=== PATIENT | female | born 1930 | race Caucasian/White ===

== ENCOUNTER 2017-09-01 13:56 | Inpatient (IN) ==
[2017-09-01] MEDS ORDERED: Naloxone 0.4 MG/ML INJ IVP PRN (16:55)
--- NOTE | 2017-09-01 17:10 | Internal Med History&Physical ---
<Tony Costa - Last Filed: 09/01/17 17:35> Date of Encounter: 09/01/17 Time of Encounter: 17:08 Assessment and Plan (1) Subtrochanteric fracture of femur Current visit: Yes Status: Acute Secondary to mechanical fall. CT scan reveals mildly comminuted displaced overriding and angulated subtrochanteric fracture of the left femur with involvement of the lesser trochanter -Orthopedic surgery to see -Pain control with Dilaudid -Bedrest -EKG -Echocardiogram prior to surgery Pre op risk assessment -2 to advanced age, dementia and history of the patient has a diminished functional capacity -Per my assessment she is a moderate risk patient without any specific contraindications for a moderate risk surgery Echocardiogram and EKG ordered as stated above prior to surgery DVT prophylaxis per recommendations of orthopedic surgeon She is not on any blood thinners Qualifiers: Encounter type: initial encounter Fracture type: closed Fracture alignment: displaced Laterality: left Qualified Code(s): S72.22XA - Displaced subtrochanteric fracture of left femur, initial encounter for closed fracture (2) Dementia Current visit: Yes Status: Acute Continue Namenda and Aricept Qualifiers: Dementia type: unspecified type Dementia behavioral disturbance: without behavioral disturbance Qualified Code(s): F03.90 - Unspecified dementia without behavioral disturbance (3) Valvular disease Current visit: Yes Status: Acute Patient reports bovine valve however it is unclear if this is mitral or aortic -Echocardiogram for further assessment and evaluation (4) DVT prophylaxis Current visit: Yes Status: Acute Heprin 5000 units SC this evening, then hold morning dose Internal Medicine - H&P: HPI Chief complaint: Left femoral fracture Admitted From: Home Plans for Post Hospital Care: Home History of present illness: Ms. Fernandes is a 86 year old female with a past medical history of dementia, GERD , valve replacement, pacer presents today after a fall while eating at a restaurant. Patient has dementia and is unable to fully dissipate in the examination. Her family is at bedside and reports reports the patient fell on her left hip, with her falling on top of her while trying to help. She has been complaining of significant pain in the left hip since the fall, and has a reduced range of motion. She denies any chest pain, dizziness, loss of consciousness, palpitations, tachycardia, shortness of breath, nausea, vomiting , diarrhea. Past Med Surg Social Fam HX - Past Medical History Medical history: hypertension - Past Surgical History Surgical History: heart valve replacement, hip replacement, pacemaker - Social History Smoking Status: Light tobacco smoker Smokeless Tobacco Status: No Alcohol use: none Drug use: none - Additional Family History Additional family history: Noncontributory Internal Medicine - H&P: Meds Docusate Sodium [Stool Softener] 100 mg PO BID 09/01/17 [History] Donepezil [Aricept] 5 mg PO DAILY 09/01/17 [History] Gabapentin [Neurontin] 600 mg PO Q6HR 09/01/17 [History] Memantine [Namenda] 5 mg PO DAILY 09/01/17 [History] Methocarbamol 09/01/17 [History] Omeprazole 10 mg PO DAILY 09/01/17 [History] Tramadol HCl 50 mg PO Q6HR PRN 09/01/17 [History] 3 Allergy/AdvReac Type Severity Reaction Status Date / Time No Known Allergies Allergy Unverified 02/23/16 09:06 All Systems PM: A 10-system review of systems was performed and is negative for pertinent findings except as documented above in the HPI. - Constitutional Constitutional: no chills, no fever(s), no night sweats - EENT Eyes: no change in vision, no discharge, no pain, no photophobia Ears: no ear discharge, no ear pain, no tinnitus Nose, mouth and throat: no dysphagia, no nasal discharge, no neck pain, no sore throat - Cardiovascular Cardiovascular ROS IM: no chest pain, no diaphoresis, no dyspnea, no lightheadedness, no palpitations, no syncope - Respiratory Respiratory: no cough, no dyspnea, no wheezing, no excessive phlegm production - Gastrointestinal Gastrointestinal: no abdominal pain, no diarrhea, no hematemesis, no hematochezia, no melena, no nausea, no vomiting - Genitourinary Genitourinary: no change in urinary stream, no dysuria, no flank pain, no hematuria - Musculoskeletal Musculoskeletal ROS IM: as per HPI - Integumentary Integumentary IM: no rash, no unusual bruising - Neurological Neurological ROS: no confusion, no convulsions, no focal weakness, no numbness, no tingling, no tremor(s) - Constitutional Vitals: Temp Pulse Resp BP Pulse Ox 99.4 F 93 16 175/80 94 09/01/17 15:46 09/01/17 15:46 09/01/17 15:46 09/01/17 15:46 09/01/17 15:46 General appearance: Present: cooperative, A&O X 1, no acute distress, answers questions appropriately Exam: Baseline dementia - Head Head exam: Present: atraumatic, normocephalic - Eye Eye exam: Present: PERRL, conjuntiva pink, sclera anicteric Pupils: Present: PERRL - Neck Neck exam general surgery: Present: supple, trachea midline. Absent: lymphadenopathy - Respiratory Respiratory exam: Present: CTAB. Absent: accessory muscle use, rales, rhonchi, wheezes - Cardiovascular Cardiovascular exam: Present: RRR, +S1, +S2. Absent: diastolic murmur, gallop, rubs, systolic murmur - GI/Abdominal GI/Abdominal exam: Present: normal bowel sounds, soft, no peritoneal signs. Absent: distended, tenderness - Extremities Exam Extremities exam: Present: normal capillary refill, tenderness, warm, radial pulses palpable and symmetrical. Absent: calf tenderness, cyanotic, pedal edema - Expanded Lower Extremities Exam Lower Leg exam: Present: swelling, tenderness (Tenderness over greater trochanter extending distally). Absent: deformity, ecchymosis, erythema, full ROM, normal inspection - Neurological Exam Neurological exam: Present: alert. Absent: oriented X3, pronater drift, facial droop, speech deficit - Skin Skin exam: Present: dry, intact Internal Med - H&P Results - Diagnostic Studies Other Images Status: image reviewed by me Additional comments: Comminuted, displaced, and overriding Subtrochanteric fracture of the left femur with involvement of the lesser trochanter <Arnie Wilson - Last Filed: 09/01/17 18:21> Date of Encounter: 09/01/17 Internal Medicine - H&P: HPI History of present illness: Ms. Fernandes is a 86 year old female All Systems PM: A 10-system review of systems was performed and is negative for pertinent findings except as documented above in the HPI. - Constitutional Vitals: Temp Pulse Resp BP Pulse Ox 99.4 F 93 16 175/80 94 09/01/17 15:46 09/01/17 15:46 09/01/17 15:46 09/01/17 15:46 09/01/17 15:46 - Attending Attestation seen and examined independently at bedside with family 86 F with COPD, s/p AVR (bovine), ICD placement last year, CKD, current smoker, HTN, Dementia She had a mechanical fall with a subtrochanteric femoral fracture and is admitted to medicine for ortho She is moderate risk for low risk surgery, however, she is not active at baseline and cardiac history is extensive, she has however had a hip replacement done before without complications I recommend we obtain an ECHO at least prior to surgery, however, if surgery is deemed emergent or urgent, procedure should not be delayed for the echocardiogram. Her old EKGs showed RBBB. We will obtain an EKG at this time Avoid nephrotoxins Type and screen High risk of delirium due to age and multiple co-morbidities, avoid BZDPs. Rest of details is as in MARIELA Costa' documentation
[2017-09-01] MEDS: *HR* Heparin 5,000 UNIT/ML VIAL SQ SCH (17:36)
[2017-09-01] MEDS: *HR* HYDROmorphone (PF) 1 MG/ML SYRINGE IVP PRN (17:36)
[2017-09-01] MEDS: Gabapentin 300 MG CAPSULE PO SCH ×2 (17:47→23:34)
--- NOTE | 2017-09-01 19:25 | Orthopedic Consult Note ---
Date of Encounter: 09/01/17 Time of Encounter: 19:22 Assessment and Plan (1) Subtrochanteric fracture of femur Current Visit: Yes Status: Acute I did discuss the diagnosis in detail and the patient has a left displaced subtrochanteric femur fracture. My recommendation is for reduction and stabilization of the left femur in order to provide pain control and to help facilitate nursing care. The risks discussed included but were not limited to stiffness, bleeding, infection, blood clots, damage to neurovascular structures , tendons, ligaments, and bone. Also discussed was the risk of continued symptoms and possible need for further procedures. I did discuss the anesthesia risks including stroke, heart attack, and . I did discuss the reasonable, foreseeable postoperative course. The patient did wish to proceed. Anticipate surgery tomorrow after medical clearance. Qualifiers: Encounter type: initial encounter Fracture type: closed Fracture alignment: displaced Laterality: left Qualified Code(s): S72.22XA - Displaced subtrochanteric fracture of left femur, initial encounter for closed fracture History of Present Illness HPI: Ms. Fernandes is a 86 year old female who was transferred from [facility] after being found to have a left subtrochanteric femur fracture. She said she had a non-syncopal fall yesterday and hoped the pain would go away on its own. Due to persistence of pain she presented to the emergency department. She complains of sharp isolated pain to the left hip and groin region worse with movement and better with rest. There is no associated numbness or tingling or other signs or symptoms. She denies any headaches or loss of consciousness or neck pain or chest pain or abdominal pain. She denies bilateral upper extremity pain and right lower extremity pain. Past Med Surg Social Fam HX - Past Medical History Medical history: hypertension - Past Surgical History Surgical History: heart valve replacement, hip replacement, pacemaker - Social History Smoking Status: Light tobacco smoker Smokeless Tobacco Status: No Alcohol use: none Drug use: none Medications and Allergies Docusate Sodium [Stool Softener] 100 mg PO BID 09/01/17 [History] Donepezil [Aricept] 5 mg PO DAILY 09/01/17 [History] Gabapentin [Neurontin] 600 mg PO Q6HR 09/01/17 [History] Memantine [Namenda] 5 mg PO DAILY 09/01/17 [History] Methocarbamol 09/01/17 [History] Omeprazole 10 mg PO DAILY 09/01/17 [History] Tramadol HCl 50 mg PO Q6HR PRN 09/01/17 [History] 3 Allergy/AdvReac Type Severity Reaction Status Date / Time No Known Allergies Allergy Unverified 02/23/16 09:06 All Systems Reviewed: A 10-system review of systems was performed and is negative for pertinent findings except as documented above in the HPI. Physical Exam - Constitutional Vitals: Temp Pulse Resp BP Pulse Ox 99.4 F 93 16 175/80 94 09/01/17 15:46 09/01/17 15:46 09/01/17 15:46 09/01/17 15:46 09/01/17 15:46 Constitutional -Vitals reviewed -The patient is well developed and well nourished. -Mood is pleasant. -The patient is well groomed. Psychiatric -The patient is fully alert and oriented x 3. Respiratory: -Respiratory effort normal Abdomen: -Soft abdomen -Non tender -Non distended: Left upper extremity: -No deformities. The overlying skin is intact. No obvious signs of acute trauma. -No tenderness to palpation throughout. -No significant pain with passive motion of the shoulder, elbow, wrist, and fingers within the limits of the bed. -Able to make an "OK" sign, cross the index and long fingers, and extend the thumb. -Sensation grossly intact to light touch throughout the median, radial, and ulnar distributions. -Radial pulse is present; Fingers have good capillary refill. Right upper extremity: -No deformities. The overlying skin is intact. No obvious signs of acute trauma. -No tenderness to palpation throughout. -No significant pain with passive motion of the shoulder, elbow, wrist, and fingers within the limits of the bed. -Able to make an "OK" sign, cross the index and long fingers, and extend the thumb. -Sensation grossly intact to light touch throughout the median, radial, and ulnar distributions. -Radial pulse is present; Fingers have good capillary refill. Left lower extremity: -The extremity is shortened and externally rotated. The overlying skin is intact. -There is tenderness in the groin region as well as the proximal lateral thigh. -I did not range the hip due to the known fracture. -No tenderness along the distal thigh, leg, ankle, foot, or toes. -Able to dorsiflex and plantarflex the ankle and toes. -Sensation is grossly intact to light touch throughout the sural, saphenous, superficial peroneal, and deep peroneal distributions. -Toes have good capillary refill. Right lower extremity: -No deformities. The overlying skin is intact. No obvious signs of acute trauma. -No tenderness to palpation throughout. -No pain with passive motion of the hip, knee, ankle, and toes within the limits of the bed. -No pain with axial loading of the thigh. -Able to dorsiflex and plantarflex the ankle and toes. -Sensation is grossly intact to light touch throughout the sural, saphenous, superficial peroneal, and deep peroneal distributions. -Toes have good capillary refill. Diagnostic Imaging: I did personally review and interpret the x-ray of the left femur as well as the CT scan of the left hip from the transferring facility which shows a displaced subtrochanteric left femur fracture. Results - Labs Labs: All other labs normal. Consult Discharge Plan - Plan Referrals: Vika Mustafa MD [Primary Care Provider] -
[2017-09-01] MEDS: traMADol 50 MG TABLET PO PRN (20:23)
[2017-09-02] MEDS: Gabapentin 300 MG CAPSULE PO SCH ×4 (05:21→23:34)
[2017-09-02] MEDS: *HR* Heparin 5,000 UNIT/ML VIAL SQ SCH (05:22)
[2017-09-02 06:23] LABS: Basophils % 0.4 %; Eosinophils # 0.1 K/mcL (0.0-0.6); Eosinophils % 1.6 %; Hematocrit 28.7 % (35.3-44.9); Hemoglobin 8.6 g/dL (11.5-15.4); Immature Granulocytes % 0.2 % (0-4); Lymphocytes # 1.4 K/mcL (0.6-4.6); Lymphocytes % 16.5 %; Mean Corpuscular Volume 96.6 fL (83.0-100.0); Mean Platelet Volume 10.5 fL (9.4-12.4); Monocytes % 11.7 %; Neutrophils # 5.8 K/mcL (1.6-8.9); Platelet Count 175 K/mcL (140-400); Red Blood Count 2.97 M/mcL (3.82-4.97); Segmented Neutrophils % 69.6 %
[2017-09-02 06:37] LABS: Calcium 8.5 mg/dL (8.6-10.3); Potassium 4.6 mEq/L (3.5-5.1)
[2017-09-02] MEDS: (Omeprazole 10 MG) PO SCH (08:09)
[2017-09-02] MEDS: *HR* HYDROmorphone (PF) 1 MG/ML SYRINGE IVP PRN ×2 (08:11→22:19)
--- NOTE | 2017-09-02 11:20 | Internal Med Progress Note ---
Date of Encounter: 09/02/17 Time of Encounter: 11:08 - Assessment and plan (1) Subtrochanteric fracture of femur Current Visit: Yes Status: Acute Assessment and plan: with intractable Left hi pain cont symptomatic and supportive care Ortho on board 2 D Echo - P EKG -showed Paced rhythm She is at moderate / Intermediate risk for surgery like Hip repair will talk to surgeon on Heparin SQ for DVT prophylaxis Qualifiers: Encounter type: initial encounter Fracture type: closed Fracture alignment: displaced Laterality: left Qualified Code(s): S72.22XA - Displaced subtrochanteric fracture of left femur, initial encounter for closed fracture (2) Hypertension Current Visit: Yes Status: Acute Assessment and plan: stable BP resumed home meds Coreg + Norvasc Qualifiers: Qualified Code(s): I10 - Essential (primary) hypertension (3) GERD (gastroesophageal reflux disease) Current Visit: Yes Status: Acute Assessment and plan: On PPI Qualifiers: Qualified Code(s): K21.9 - Gastro-esophageal reflux disease without esophagitis (4) Dementia Current Visit: Yes Status: Acute Qualifiers: Dementia type: unspecified type Dementia behavioral disturbance: without behavioral disturbance Qualified Code(s): F03.90 - Unspecified dementia without behavioral disturbance (5) Valvular disease Current Visit: Yes Status: Acute Assessment and plan: will f/u on 2 D Echo (6) DVT prophylaxis Current Visit: Yes Status: Acute Assessment and plan: on SQ heparin - Subjective Interval history: Ms. Fernandes is a 86 year old female with a past medical history of dementia, GERD , heart valve replacement, pacer presents today after a fall while eating at a restaurant. As per family the patient fell on her left hip, with her falling on top of her while trying to help. She has been complaining of significant pain in the left hip since the fall, and has a reduced range of motion. Pt is resting comfortably, denied any CP / SOB. Her pain is also tolerable with medications. - Constitutional Vitals: Temp Pulse Resp BP Pulse Ox 97.8 F 81 16 126/64 99 09/02/17 06:45 09/02/17 06:45 09/02/17 06:45 09/02/17 06:45 09/02/17 06:45 General appearance: Present: cooperative, A&O X 1, no acute distress, answers questions appropriately - Head Head exam: Present: atraumatic, normal inspection - Neck Neck exam general surgery: Present: supple - Respiratory Respiratory exam: Present: decreased breath sounds. Absent: rales, respiratory distress, rhonchi, wheezes - Cardiovascular Cardiovascular exam: Present: RRR, +S1, +S2. Absent: tachycardia - GI/Abdominal GI/Abdominal exam: Present: normal bowel sounds, soft. Absent: rebound, rigid, tenderness - Extremities Exam Extremities exam: Present: tenderness (Left hip pain). Absent: calf tenderness , pedal edema - Back Exam Back exam: Absent: CVA tenderness (L), CVA tenderness (R) - Neurological Exam Neurological exam: Present: alert, oriented X3 - Psychiatric Psychiatric exam: Present: normal affect, normal mood Internal Medicine: Result - Labs CBC & Chem 7: 09/02/17 05:56 09/02/17 05:56 Labs: Short CBC 09/02/17 Range/Units 05:56 WBC 8.3 (4.3-11.1) K/mcL Hgb 8.6 L (11.5-15.4) g/dL Hct 28.7 L (35.3-44.9) % Plt Count 175 (140-400) K/mcL Neutrophils # 5.8 (1.6-8.9) K/mcL BMP 09/02/17 05:56 Sodium 138 Potassium 4.6 Chloride 105 Carbon Dioxide 29 BUN 34 H Creatinine 1.82 H Glucose 117 H Calcium 8.5 L - Impressions Impressions Femur X-Ray 09/01/17 18:13 IMPRESSION: Oblique, moderately displaced and comminuted fracture of the proximal left femur, with involvement of the lesser trochanter. D/ / 09/01/2017 19:28:47 Roger Marquez MD / daren Interpreting Provider: Roger Marquez MD Consult Discharge Plan - Plan Referrals: Vika Mustafa MD [Primary Care Provider] -
--- NOTE | 2017-09-02 11:54 | Orthopedics Progress Note ---
Date of Encounter: 09/02/17 Time of Encounter: 11:53 - Assessment and Plan (1) Subtrochanteric fracture of femur Current Visit: Yes Status: Acute I did discuss the diagnosis in detail and the patient has a left displaced subtrochanteric femur fracture. My recommendation is for reduction and stabilization of the left femur in order to provide pain control and to help facilitate nursing care. The risks discussed included but were not limited to stiffness, bleeding, infection, blood clots, damage to neurovascular structures , tendons, ligaments, and bone. Also discussed was the risk of continued symptoms and possible need for further procedures. I did discuss the anesthesia risks including stroke, heart attack, and . I did discuss the reasonable, foreseeable postoperative course. The patient did wish to proceed. Anticipate surgery tomorrow after medical clearance. Qualifiers: Encounter type: initial encounter Fracture type: closed Fracture alignment: displaced Laterality: left Qualified Code(s): S72.22XA - Displaced subtrochanteric fracture of left femur, initial encounter for closed fracture Subjective Interval history: S: Resting comfortably in bed. Expected pain to the left hip. O: Afebrile and vital signs are stable Tenderness and pain in the left thigh and groin I did not motion the left hip due to the known injury She can flex and plantar flex the left ankle and toes The foot is sensate and well-perfused. A: Left hip subtrochanteric fracture P: At this point my recommendation is for proceeding with fixation of the left hip to stabilize left hip and provide pain control. Awaiting follow-up from echo this morning We will proceed with surgery once medically cleared. Objective Vital signs: Vital Signs Temp Pulse Resp BP Pulse Ox 09/02/17 11:05 97.6 F 78 16 129/58 96 09/02/17 06:45 97.8 F 81 16 126/64 99 09/02/17 04:42 97.6 F 76 15 128/54 98 09/01/17 23:38 97.9 F 87 16 118/60 96 09/01/17 19:21 98.8 F 98 17 178/78 97 09/01/17 15:46 99.4 F 93 16 175/80 94 Intake and Output 09/01/17 09/02/17 09/02/17 23:59 07:59 15:59 Intake Total 120 / 120 Output Total 975 / 975 Balance 120 / 120 -975 / -975 Intake: Oral 120 / 120 Output: Catheter / 975 - Labs CBC & BMP: 09/02/17 05:56 09/02/17 05:56 Labs: Abnormal lab results RBC 2.97 M/mcL (3.82-4.97) L 09/02/17 05:56 Hgb 8.6 g/dL (11.5-15.4) L 09/02/17 05:56 Hct 28.7 % (35.3-44.9) L 09/02/17 05:56 MCHC 30.0 g/dL (31.6-35.5) L 09/02/17 05:56 BUN 34 mg/dL (8-23) H 09/02/17 05:56 Creatinine 1.82 mg/dL (0.60-1.20) H 09/02/17 05:56 Est GFR ( Amer) 32 (> 60) L 09/02/17 05:56 Est GFR (Non-Af Amer) 26 (> 60) L 09/02/17 05:56 Glucose 117 mg/dL (70-105) H 09/02/17 05:56 Calcium 8.5 mg/dL (8.6-10.3) L 09/02/17 05:56 Consult Discharge Plan - Plan Referrals: Vika Mustafa MD [Primary Care Provider] -
--- NOTE | 2017-09-02 14:16 | Anesthesia Evaluation PreOp ---
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) Other Medical History: GERD Anesthesia History: No Prior Anesthetic Complications, Past Anesthesia Alcohol Use: none Drug use: none Medications and Allergies Docusate Sodium [Stool Softener] 100 mg PO BID 09/01/17 [History] Donepezil [Aricept] 5 mg PO DAILY 09/01/17 [History] Gabapentin [Neurontin] 600 mg PO Q6HR 09/01/17 [History] Methocarbamol 09/01/17 [History] Omeprazole [PriLOSEC] 10 mg PO DAILY 09/01/17 [History] Tramadol HCl [Ultram] 50 mg PO Q6H PRN 09/01/17 [History] Carvedilol [Carvedilol] 12.5 mg PO BID 09/02/17 [History] Furosemide [Lasix] 40 mg PO DAILY PRN 09/02/17 [History] Gabapentin [Neurontin] 600 mg PO Q6H PRN 09/02/17 [History] Memantine HCl [Memantine HCl] 10 mg PO DAILY 09/02/17 [History] amLODIPine [Norvasc] 5 mg PO DAILY 09/02/17 [History] 3 Allergy/AdvReac Type Severity Reaction Status Date / Time No Known Allergies Allergy Verified 09/02/17 10:34 - Meds/Allergy Pre-op Review Medications Reviewed: Yes Allergies Reviewed: Yes Beta Blockers on Current Med List: Yes Anesthesia Results - Labs 09/02/17 05:56 09/02/17 05:56 - Imaging EKG: report reviewed (09/01/2017 ELECTRONIC VENTRICULAR PACEMAKER 11/10/2014 SINUS RHYTHM RIGHT BUNDLE BRANCH BLOCK) Additional studies: 09/02/2017 Echo Impressions: Paced rhythm. Mild concentric left ventricular hypertrophy. Moderate left ventricular diastolic dysfunction. Atypical septal motion consistent with paced rhythm. Bioprosthetic aortic valve replacement with normal function. Mild mitral regurgitation. Mild-moderate tricuspid regurgitation. A device lead was visualized in the right atrium and right ventricle. LVEF 65%., unable to fully evaluate subsegmental wall motion abnormalites due to limited positioning. Anesthesia Exam Vital Signs/O2 Sat, Most Current Temp Pulse Resp BP Pulse Ox 97.6 F 78 16 129/58 96 09/02/17 11:05 09/02/17 11:05 09/02/17 11:05 09/02/17 11:05 09/02/17 11:05 Height: 5'5''/1.65 m Weight: 141 lbs/64.4 kg NPO (# of Hours): 8 Pain Scale: 0 (at rest) Pain Scale Used: Numeric (1 - 10) - HEENT Pupil (Motor): EOMI Mallampati: II Teeth: Normal Oral Opening: Greater than 3 - AUGER SUPERVISOR LOC: Oriented AUGER SUPERVISOR Motor: Normal RUE, Normal LUE, Normal RLE, Normal LLE, Normal Face AUGER SUPERVISOR Sensory: Normal: RUE, LUE, RLE, LLE, Face - Cardiac Rhythm: Regular - Pulmonary Breath Sounds: bilateral Clear Respiratory Effort: Symmetrical Anesthesia Assess/Plan ASA Score: 3 Modified Mariajose Scale for Level of Consciousness: Cooperative, oriented, and tranquil Anesthetic Plan: General Monitoring Plan: Standard Monitors Recovery Plan: PACU
[2017-09-02] MEDS ORDERED: Albuterol 2.5 MG/3 ML NEBULIZER ONE (14:39)
[2017-09-02] MEDS ORDERED: *HR* HYDROmorphone (PF) 1 MG/ML SYRINGE IVP PRN (14:47)
[2017-09-02] MEDS ORDERED: *HR* Succinylcholine 200 MG/10 ML VIAL IVP ONE (14:50)
[2017-09-02] MEDS ORDERED: *HR* FentaNYL (PF) 100 MCG/2 ML VIAL ONE (14:50)
[2017-09-02] MEDS ORDERED: Dexamethasone 4 MG/ML VIAL ONE (14:50)
[2017-09-02] MEDS ORDERED: *HR* Propofol 200 MG/20 ML VIAL IVP ONE (14:50)
[2017-09-02] MEDS ORDERED: Ondansetron 4 MG/2 ML VIAL ONE (14:50)
[2017-09-02] MEDS ORDERED: Lidocaine -MPF 2% 2 ML VIAL ONE (14:50)
[2017-09-02] MEDS ORDERED: *HR* Metoprolol 5 MG/5 ML VIAL IVP ONE (15:30)
[2017-09-02] MEDS: *HR* Morphine 2 MG/ML SYRINGE IVP PRN ×2 (17:30→17:40)
--- NOTE | 2017-09-02 18:03 | Anesthesia Evaluation Post Op ---
Date of Encounter: 09/02/17 Time of Encounter: 18:03 - Vital Signs Vital Signs: Vital Signs/O2 Sat, Most Current Temp Pulse Resp BP Pulse Ox 98.2 F 84 12 150/57 98 09/02/17 17:53 09/02/17 17:53 09/02/17 17:53 09/02/17 17:53 09/02/17 17:53 - Lungs Lungs: Clear Ascult./Percussion - Airway Airway: Non-obstructed - Cardiovascular Regular Rate - Mental Status Mental Status: Asleep with brisk response to light stimulation - Pain Pain Scale: 0 Pain Scale used: Numeric (1 - 10) - Nausea Vomiting Nausea Vomiting: Not Present - Hydration Hydration: NPO, Prakash catheter - Discharge PostOp Status: Transfer Patient to floor
--- NOTE | 2017-09-02 18:11 | Orthopedic Operative Note ---
Date of procedure: 09/02/17 Procedure: OPERATIVE REPORT DATE OF PROCEDURE: 09/02/2017 SURGEON: Felipe Kearney MD OIL RIG ROUGHNECK(S): There were no assistants PREOPERATIVE DIAGNOSIS: Left subtrochanteric femur fracture POSTOPERATIVE DIAGNOSIS: Left subtrochanteric femur fracture PROCEDURE: Open reduction and internal fixation of the left femur ANESTHESIA: General anesthesia PREOPERATIVE ANTIBIOTICS: 2 g of Ancef ESTIMATED BLOOD LOSS: 200 milliliters IMPLANTS: Marisel Gamma 3 nail; 380 mm by 11 mm with a 125 degree neck and 95 mm lag screw PREOPERATIVE NOTE AND INDICATIONS: This patient is an 86 female with a left subtrochanteric femur fracture. Recommendation was for reduction and fixation in order to reduce and stabilize the left femur to provide pain control and to help facilitate nursing care. The surgical plan was discussed with the patient. The risks, benefits, alternatives, and potential complications of this procedure were discussed with the patient including injury to veins, arteries, nerves, tendons, ligaments, and bone. Also discussed were the risks of infection, bleeding, pain, blood clots, the possible need for a blood transfusion, the possible need for further procedures, heart attack, stroke, and . Additional risks including malunion, nonunion, hardware failure, and the need to remove the hardware in the future. All of this was explained in simple terms, and the patient verbalized understanding and wished to proceed. Consent was given to proceed with surgery. PROCEDURE: The patient was seen in the preoperative holding area where the identify and the consent were confirmed. The left thigh was marked. Final questions were answered. The patient was brought back to the operating room. A huddle was performed with the patient and all vital surgical team members confirming patient identity, the correct procedure, and the correct operative site. General anesthesia was administered. She was placed supine on the traction table. The left lower extremity was placed in traction and the right lower extremity was flexed and abducted out of the way. Good x-rays could be obtained. The fracture remained significantly displaced and the decision was made to open. The left lower extremity was prepped and draped in the usual sterile fashion. A surgical time out was performed immediately preceding the incision with all personnel in the operating room to confirm patient identity, the correct operative site and extremity, correct radiographic studies, availability of appropriate surgical equipment, and agreement on the planned procedure. A longitudinal incision was made laterally on the thigh and dissection proceeded through the subcutaneous tissue down to the fascia karolina. This was incised longitudinally and the vastus lateralis was encountered. The fascia of the vastus lateralis was opened and using the Bovie dissection proceeded through the muscle down to the fracture fragments which were identified. Muscle was stripped off the fracture site in order to allow for reduction which was held with a clamp. A small incision was made proximally and dissection proceeded to the gluteal fascia which was opened. The guidewire was driven in the proximal femur which was opened with a curved awl. The ball-tipped guidewire was passed on the femur and the canal was reamed in half millimeter increments up to 13 mm. The definitive 11 mm nail was passed down the shaft of the femur and a guidewire driven into the femoral head. This was overdrilled and the definitive 95 mm lag screw was placed. Using a perfect [place] technique to distal [place] were placed after making small poke hole incisions along the distal lateral thigh. Final x-rays confirmed excellent reduction and good position of the hardware. The wounds were copiously irrigated and the vastus lateralis fascia was closed with 0 Vicryl stitches followed by the fascia karolina with 0 Vicryl stitches. The skin was closed with 0 Vicryl, 3-0 Vicryl, and payton. Sterile dressings were applied. The patient was taken off the traction table and placed on her hospital bed in good condition. The instrument, sponge, and needle counts were correct after wound closure. POST OPERATIVE PLAN: Weight Bearing: Weightbearing as tolerated to bilateral lower extremity. DVT Prophylaxis: Aspirin Activity: Activities as tolerated with the assistance of therapy Wound Care: Daily dressing changes on postoperative day 2 Pain Control: Per the hospitalist Antibiotics: 2 g of Ancef 2 doses Follow Up: 2 weeks Was there an virtual assistant present: No Estimated blood loss (cc): 200
[2017-09-02 18:28] LABS: Hematocrit 27.4 % (35.3-44.9); Hemoglobin 8.4 g/dL (11.5-15.4)
[2017-09-02] MEDS: 0.9 % Sodium Chloride 1,000 ML IVC SCH (19:48)
[2017-09-02] MEDS: CeFAZolin Premix DUPLEX 2,000 MG/50 ML BAG IVPB SCH (23:34)
[2017-09-03 02:59] LABS: Basophils % 0.1 %; Hematocrit 24.3 % (35.3-44.9); Hemoglobin 7.4 g/dL (11.5-15.4); Immature Granulocytes % 0.4 % (0-4); Mean Corpuscular HGB Conc 30.5 g/dL (31.6-35.5); Mean Corpuscular Hemoglobin 29.2 pg (28.0-33.3); Mean Platelet Volume 10.9 fL (9.4-12.4); Monocytes # 1.3 K/mcL (0.0-1.3); Monocytes % 9.3 %; Neutrophils # 11.9 K/mcL (1.6-8.9); Platelet Count 160 K/mcL (140-400); Red Blood Count 2.53 M/mcL (3.82-4.97); Segmented Neutrophils % 84.2 %
[2017-09-03 03:20] LABS: Calcium 7.9 mg/dL (8.6-10.3); Magnesium 1.9 mg/dL (1.6-2.6); Potassium 5.7 mEq/L (3.5-5.1)
[2017-09-03 03:25] LABS: Lymphocytes # 0.9 K/mcL (0.6-4.6)
[2017-09-03] MEDS: traMADol 50 MG TABLET PO PRN (05:57)
[2017-09-03] MEDS: Gabapentin 300 MG CAPSULE PO SCH ×4 (05:57→23:19)
[2017-09-03] MEDS: 0.9 % Sodium Chloride 1,000 ML IVC SCH (05:58)
[2017-09-03] MEDS ORDERED: 0.9 % Sodium Chloride 250 ML IVC SCH (07:30)
--- NOTE | 2017-09-03 07:50 | Orthopedics Progress Note ---
Date of Encounter: 09/03/17 Time of Encounter: 07:47 - Assessment and Plan (1) Subtrochanteric fracture of femur Current Visit: Yes Status: Acute Qualifiers: Encounter type: initial encounter Fracture type: closed Fracture alignment: displaced Laterality: left Qualified Code(s): S72.22XA - Displaced subtrochanteric fracture of left femur, initial encounter for closed fracture Subjective Interval history: S: Resting comfortably in bed. Expected pain to the left hip. O: Afebrile and vital signs are stable Tenderness and pain in the left thigh and groin I can gently passively range the left hip with mild to moderate pain as expected. She can dorsiflex and plantar flex the ankle and toes. A: Post internal fixation of the left femur P: At this point the patient can mobilize with therapy when able Prakash out Weightbearing as tolerated on the bilateral lower extremities Aspirin 325 mg by mouth twice a day We will transfuse 1 unit for acute blood loss anemia from surgery Objective Vital signs: Vital Signs Temp Pulse Resp BP Pulse Ox 09/03/17 06:23 99.8 F H 75 16 128/61 94 09/03/17 02:58 99.9 F H 93 16 121/60 100 09/02/17 23:08 99.8 F H 93 14 131/64 99 09/02/17 21:30 97.6 F 95 18 113/63 100 09/02/17 20:30 98.3 F 95 18 126/55 100 09/02/17 19:54 100 09/02/17 19:30 97.6 F 97 18 145/65 100 09/02/17 19:12 97.9 F 96 14 130/65 100 09/02/17 19:00 97.6 F 94 18 152/65 100 09/02/17 18:30 97.5 F L 89 12 118/63 98 09/02/17 18:13 98 F 90 12 141/70 99 09/02/17 18:03 88 12 152/56 100 09/02/17 17:53 98.2 F 84 12 150/57 98 09/02/17 17:43 81 14 152/58 100 09/02/17 17:33 82 16 153/101 100 09/02/17 17:23 97.4 F L 80 14 167/74 94 09/02/17 11:05 97.6 F 78 16 129/58 96 Intake and Output 09/02/17 09/02/17 09/03/17 15:59 23:59 07:59 Intake Total 120 / 120 1050 / 1050 Output Total 975 / 975 200 / 200 250 / 250 Balance -975 / -975 -80 / -80 800 / 800 Intake: IV Fluids 1050 / 1050 0.9 % Sodium Chloride 1,000 ML 1000 / 1000 @ 100 mls/hr IVC .Q10H GIULIANA Rx#: [id number] Ancef Premix DUPLEX 2,000 mg In 50 / 50 50 ml @ 100 mls/hr IVPB Q8HR GIULINAA Rx#:[id number] Oral 120 / 120 Output: Urine 0 / 0 Estimated Blood Loss 200 / 200 Catheter 975 / 975 0 / 0 250 / 250 - Labs CBC & BMP: 09/03/17 02:12 09/03/17 02:12 Labs: Abnormal lab results WBC 14.1 K/mcL (4.3-11.1) H D 09/03/17 02:12 RBC 2.53 M/mcL (3.82-4.97) L 09/03/17 02:12 Hgb 7.4 g/dL (11.5-15.4) L 09/03/17 02:12 Hct 24.3 % (35.3-44.9) L 09/03/17 02:12 MCHC 30.5 g/dL (31.6-35.5) L 09/03/17 02:12 Neutrophils # 11.9 K/mcL (1.6-8.9) H 09/03/17 02:12 Potassium 5.7 mEq/L (3.5-5.1) H 09/03/17 02:12 BUN 41 mg/dL (8-23) H 09/03/17 02:12 Creatinine 2.07 mg/dL (0.60-1.20) H 09/03/17 02:12 Est GFR ( Amer) 28 (> 60) L 09/03/17 02:12 Est GFR (Non-Af Amer) 23 (> 60) L 09/03/17 02:12 Glucose 164 mg/dL (70-105) H 09/03/17 02:12 Calcium 7.9 mg/dL (8.6-10.3) L 09/03/17 02:12 - VTE Documentation of Mechanical Device: Intermittent pneumatic compression device Consult Discharge Plan - Plan Referrals: Vika Mustafa MD [Primary Care Provider] -
[2017-09-03] MEDS: CeFAZolin Premix DUPLEX 2,000 MG/50 ML BAG IVPB SCH (08:04)
--- NOTE | 2017-09-03 08:51 | Internal Med Progress Note ---
Date of Encounter: 09/03/17 Time of Encounter: 08:20 - Assessment and plan (1) Subtrochanteric fracture of femur Current Visit: Yes Status: Acute Assessment and plan: with intractable Left hip pain s/p ORIF of Left Femur on 09/02/17 - POD #1 cont post op care as per ortho Hb dropped down to 7.4 Will transfuse 2 U PRBC cont symptomatic and supportive care Reviewed 2 D Echo - showed mild concentric LVH, Moderate LV diastolic dysfunction, Bioprosthetic AV replacement, Preserved LVEF 2 65% Started on Lovenox at 30mg for DVT prophylaxis Qualifiers: Encounter type: initial encounter Fracture type: closed Fracture alignment: displaced Laterality: left Qualified Code(s): S72.22XA - Displaced subtrochanteric fracture of left femur, initial encounter for closed fracture (2) Acute blood loss as cause of postoperative anemia Current Visit: Yes Status: Acute Assessment and plan: Her anemia -might be due to Post op blood loss + CKD-3 will transfuse 2 U PRBC cont close monitoring (3) Hypertension Current Visit: Yes Status: Acute Assessment and plan: stable BP resumed home meds Coreg + Norvasc Qualifiers: Qualified Code(s): I10 - Essential (primary) hypertension (4) GERD (gastroesophageal reflux disease) Current Visit: Yes Status: Acute Assessment and plan: On PPI Qualifiers: Qualified Code(s): K21.9 - Gastro-esophageal reflux disease without esophagitis (5) Dementia Current Visit: Yes Status: Acute Qualifiers: Dementia type: unspecified type Dementia behavioral disturbance: without behavioral disturbance Qualified Code(s): F03.90 - Unspecified dementia without behavioral disturbance (6) CKD (chronic kidney disease), stage III Current Visit: Yes Status: Acute Assessment and plan: slightly elevated Cr, and K+ mostly due to dehydration cont IV hydration for today (7) Valvular disease Current Visit: Yes Status: Acute Assessment and plan: Bioprotshetic AV valve no further work needed (8) Chronic diastolic (congestive) heart failure Current Visit: Yes Status: Acute Assessment and plan: echo showed moderate diastolic dysfunction, preserved LVEF not in exacerbation gentle hydration only resumed home meds (9) DVT prophylaxis Current Visit: Yes Status: Acute Assessment and plan: on SQ Lovenox - Subjective Interval history: Ms. Fernandes is a 86 year old female with a past medical history of dementia, GERD , heart valve replacement, pacer presents today after a fall while eating at a restaurant. As per family the patient fell on her left hip, with her falling on top of her while trying to help. She has been complaining of significant pain in the left hip since the fall, and has a reduced range of motion. Pt is resting comfortably, denied any CP / SOB. Her pain is also tolerable with medications. No events over night. - Constitutional Vitals: Temp Pulse Resp BP Pulse Ox 99.8 F H 75 16 128/61 94 09/03/17 06:23 09/03/17 06:23 09/03/17 06:23 09/03/17 06:23 09/03/17 06:23 General appearance: Present: cooperative, A&O X 2, no acute distress, answers questions appropriately - Head Head exam: Present: atraumatic, normal inspection - Neck Neck exam general surgery: Present: supple - Respiratory Respiratory exam: Present: decreased breath sounds. Absent: rales, respiratory distress, rhonchi, wheezes - Cardiovascular Cardiovascular exam: Present: +S1, +S2, systolic murmur. Absent: tachycardia - GI/Abdominal GI/Abdominal exam: Present: normal bowel sounds, soft. Absent: rebound, rigid, tenderness - Extremities Exam Extremities exam: Present: tenderness (Left hip region.. ). Absent: calf tenderness, pedal edema Additional comments: clean incision - Back Exam Back exam: Absent: CVA tenderness (L), CVA tenderness (R) - Psychiatric Psychiatric exam: Present: normal affect, normal mood Internal Medicine: Result - Labs CBC & Chem 7: 09/03/17 02:12 09/03/17 02:12 Labs: Short CBC 09/02/17 09/03/17 Range/Units 18:15 02:12 WBC 14.1 H D (4.3-11.1) K/mcL Hgb 8.4 L 7.4 L (11.5-15.4) g/dL Hct 27.4 L 24.3 L (35.3-44.9) % Plt Count 160 (140-400) K/mcL Neutrophils # 11.9 H (1.6-8.9) K/mcL BMP 09/03/17 02:12 Sodium 136 Potassium 5.7 H Chloride 105 Carbon Dioxide 24 BUN 41 H Creatinine 2.07 H Glucose 164 H Calcium 7.9 L - Impressions Impressions Fluoroscopy 09/02/17 00:00 IMPRESSION: Status post ORIF for proximal left femur fracture. D/ / 09/02/2017 17:53:38 Sen Carrington MD / cosmo Interpreting Provider: Sen Carrington MD Echocardiogram 09/02/17 08:23 Impressions: Paced rhythm. Mild concentric left ventricular hypertrophy. Moderate left ventricular diastolic dysfunction. Atypical septal motion consistent with paced rhythm. Bioprosthetic aortic valve replacement with normal function. Mild mitral regurgitation. Mild-moderate tricuspid regurgitation. A device lead was visualized in the right atrium and right ventricle. LVEF 65%., unable to fully evaluate subsegmental wall motion abnormalites due to limited positioning. Left Ventricular Wall Motion: Rest Echo Findings All wall segments showed normal motion. Findings: Study Quality * Technically sub-optimal due to poor echocardiographic windows, pt supine with hip fracture, unable to position, dementia, unable to cooperate ECG Findings * Paced rhythm. Left Ventricle * LVEF 65%. * Mild concentric left ventricular hypertrophy. * Moderate left ventricular diastolic dysfunction. * There is no LV thrombus. * Atypical septal motion consistent with paced rhythm. Right Ventricle * Normal right ventricular structure and function. Left Atrium * Normal left atrial size. Right Atrium * Normal right atrial size. Aortic Valve * Bioprosthetic aortic valve replacement with normal function. Mitral Valve * Normal mitral valve structure. * Mild mitral regurgitation. Tricuspid Valve * Normal tricuspid valve structure. * Mild-moderate tricuspid regurgitation. Pulmonic Valve * Pulmonic valve is not well visualized. Aorta * Normally sized aortic root. Pericardium * The pericardium appears normal. Device lead * A device lead was visualized in the right atrium and right ventricle. Pelvis X-Ray 09/02/17 17:13 IMPRESSION: Improved alignment of the proximal left femur fracture status post ORIF. The fracture extends along the left femoral shaft off of the inferior aspect of the radiograph. D/ / 09/02/2017 17:55:12 Abdirahman Veras MD / cosmo Interpreting Provider: Abdirahman Veras MD Femur X-Ray 09/02/17 17:14 IMPRESSION: Status post ORIF for a proximal left femur fracture. D/ / 09/02/2017 17:44:58 Sen Carrington MD / daren Interpreting Provider: Sen Carrington MD - VTE Documentation of Mechanical Device: Intermittent pneumatic compression device Consult Discharge Plan - Plan Referrals: Vika Mustafa MD [Primary Care Provider] -
[2017-09-03] MEDS: (Omeprazole 10 MG) PO SCH (09:07)
[2017-09-03] MEDS: *HR* OxyCODONE Immed Rel 5 MG TABLET PO PRN ×2 (11:31→15:35)
[2017-09-03] MEDS: Aspirin Enteric Coated 81 MG Tablet PO SCH (11:32)
[2017-09-03] MEDS ORDERED: 0.9 % Sodium Chloride 250 ML ONE ×2 (12:05→15:49)
[2017-09-03] MEDS ORDERED: Aspirin Enteric Coated 325 MG Tablet PO SCH (17:18)
[2017-09-03 21:17] LABS: Hematocrit 27.5 % (35.3-44.9); Hemoglobin 8.9 g/dL (11.5-15.4)
[2017-09-03 21:33] LABS: Calcium 7.5 mg/dL (8.6-10.3); Magnesium 1.8 mg/dL (1.6-2.6); Potassium 5.2 mEq/L (3.5-5.1)
[2017-09-03] MEDS ORDERED: Acetaminophen 325 MG TABLET PO PRN (23:34)
[2017-09-04] MEDS: Gabapentin 300 MG CAPSULE PO SCH ×4 (05:42→20:55)
[2017-09-04] MEDS ORDERED: *HR* Enoxaparin 30 MG/0.3 ML SYRINGE SQ SCH (06:00)
[2017-09-04 07:02] LABS: Basophils % 0.2 %; Eosinophils # 0.1 K/mcL (0.0-0.6); Eosinophils % 0.6 %; Hematocrit 24.4 % (35.3-44.9); Hemoglobin 7.8 g/dL (11.5-15.4); Immature Granulocytes % 0.5 % (0-4); Lymphocytes # 1.1 K/mcL (0.6-4.6); Lymphocytes % 13.7 %; Mean Corpuscular Hemoglobin 29.4 pg (28.0-33.3); Mean Corpuscular Volume 92.1 fL (83.0-100.0); Mean Platelet Volume 11.1 fL (9.4-12.4); Monocytes # 0.9 K/mcL (0.0-1.3); Monocytes % 11.4 %; Neutrophils # 6.1 K/mcL (1.6-8.9); Platelet Count 104 K/mcL (140-400); Red Blood Count 2.65 M/mcL (3.82-4.97); Red Cell Distribution Width 15.2 % (11.5-14.5); Segmented Neutrophils % 73.6 %
[2017-09-04 07:19] LABS: Calcium 7.5 mg/dL (8.6-10.3); Potassium 4.8 mEq/L (3.5-5.1)
[2017-09-04] MEDS ORDERED: Furosemide 20 MG/2 ML VIAL IVP ONE (08:06)
--- NOTE | 2017-09-04 08:11 | Internal Med Progress Note ---
Date of Encounter: 09/04/17 Time of Encounter: 08:09 - Assessment and plan (1) Subtrochanteric fracture of femur Current Visit: Yes Status: Acute Assessment and plan: with intractable Left hip pain s/p ORIF of Left Femur on 09/02/17 - POD # 2 cont post op care as per ortho Needed 2 units PRBCs yesterday. Her hemoglobin dropped again but no signs of bleeding. We will not transfuse today. We will check labs in the morning. Reviewed 2 D Echo - showed mild concentric LVH, Moderate LV diastolic dysfunction, Bioprosthetic AV replacement, Preserved LVEF 2 65% Aspirin 325 twice a day per Orthopedics for DVT prophylaxis. Qualifiers: Encounter type: initial encounter Fracture type: closed Fracture alignment: displaced Laterality: left Qualified Code(s): S72.22XA - Displaced subtrochanteric fracture of left femur, initial encounter for closed fracture (2) Acute diastolic heart failure Current Visit: Yes Status: Acute Assessment and plan: Patient has a history of diastolic heart failure. We will give 20 mg of IV Lasix as she seems to be exacerbation with crackles and hypoxia requiring 2 L of oxygen although she is on 2 L chronically 2. Continue with nebulizers. Wean down oxygen as tolerated. (3) CKD (chronic kidney disease), stage III Current Visit: Yes Status: Acute Assessment and plan: Creatinine is above baseline. It is at 2.21 today. It was 2.43 yesterday. We will give 20 mg of IV Lasix today. Check labs in the morning. Avoid other nephrotoxins. Stop IV fluids. She does have crackles. (4) Acute blood loss as cause of postoperative anemia Current Visit: Yes Status: Acute Assessment and plan: Status post 2 units PRBCs yesterday. Hemoglobin is 7.8 today. It did jump up to 8.4 yesterday after the transfusions. No signs of bleeding. I suspect this is blood loss anemia from the surgery. We will continue to monitor. The patient is hemodynamically stable. Labs in the morning. (5) Dementia Current Visit: Yes Status: Acute Assessment and plan: Continue supportive care Qualifiers: Dementia type: unspecified type Dementia behavioral disturbance: without behavioral disturbance Qualified Code(s): F03.90 - Unspecified dementia without behavioral disturbance (6) Valvular disease Current Visit: Yes Status: Acute Assessment and plan: Bioprotshetic AV valve no further work needed (7) Hypertension Current Visit: Yes Status: Acute Assessment and plan: stable BP resumed home meds Coreg + Norvasc Qualifiers: Qualified Code(s): I10 - Essential (primary) hypertension (8) DVT prophylaxis Current Visit: Yes Status: Acute Assessment and plan: Aspirin 325 mg twice a day - Subjective Interval history: Patient was seen and examined. Has been no acute events. She was admitted with a left femur fracture. She is status post ORIF on 09/02. Postoperatively she required 2 units of PRBCs. She is currently on 2 L of nasal cannula oxygen. She tells me she is usually on it on and off at home. She has worked with therapy. She says the pain is still significant. Her status complicated by acute kidney failure on chronic kidney disease. She has been afebrile. - Constitutional Vitals: Temp Pulse Resp BP Pulse Ox 98.6 F 85 20 144/61 100 09/04/17 06:45 09/04/17 06:45 09/04/17 06:45 09/04/17 06:45 09/04/17 06:45 General appearance: Present: cooperative, A&O X 2, no acute distress, answers questions appropriately Exam: GEN: NAD CVS: RRR. S1, S2, No m/r/g RESP: Crackles at the bases. ABD: Soft, NT, ND, +BS EXT: No edema. 2+ DP, No rashes NEURO: Nonfocal Internal Medicine: Result - Labs CBC & Chem 7: 09/04/17 05:57 09/04/17 05:57 Labs: Short CBC 09/03/17 09/04/17 Range/Units 21:08 05:57 WBC 8.3 (4.3-11.1) K/mcL Hgb 8.9 L D 7.8 L (11.5-15.4) g/dL Hct 27.5 L 24.4 L (35.3-44.9) % Plt Count 104 L (140-400) K/mcL Neutrophils # 6.1 (1.6-8.9) K/mcL BMP 09/03/17 09/04/17 21:08 05:57 Sodium 131 L 134 L Potassium 5.2 H 4.8 Chloride 104 106 Carbon Dioxide 22 L 23 BUN 48 H 47 H Creatinine 2.43 H 2.21 H Glucose 225 H 209 H Calcium 7.5 L 7.5 L - Impressions Impressions Chest X-Ray 09/04/17 23:35 IMPRESSION: Mild prominence of pulmonary vasculature. Correlation for pulmonary edema is recommended. D/ / Anisha Laws Cha, MD / Anisha Laws Cha, MD Interpreting Provider: Anisha Laws Cha, MD - VTE Documentation of Mechanical Device: Intermittent pneumatic compression device Consult Discharge Plan - Plan Referrals: Vika Mustafa MD [Primary Care Provider] -
--- NOTE | 2017-09-04 08:15 | Orthopedics Progress Note ---
Date of Encounter: 09/04/17 Time of Encounter: 08:13 - Assessment and Plan (1) Subtrochanteric fracture of femur Current Visit: Yes Status: Acute Qualifiers: Qualified Code(s): S72.22XA - Displaced subtrochanteric fracture of left femur, initial encounter for closed fracture Subjective Interval history: S: Resting comfortably in bed. Expected pain to the left hip. O: Afebrile and vital signs are stable; febrile last night Tenderness and pain in the left thigh and groin I can gently passively range the left hip with mild to moderate pain as expected. She can dorsiflex and plantar flex the ankle and toes. A: Post internal fixation of the left femur P: At this point the patient can mobilize with therapy when able Weightbearing as tolerated on the bilateral lower extremities Aspirin 325 mg by mouth twice a day Objective Vital signs: Vital Signs Temp Pulse Resp BP Pulse Ox 09/04/17 06:45 98.6 F 85 20 144/61 100 09/04/17 03:41 99.2 F 93 16 143/72 95 09/03/17 23:33 101.2 F H 101 15 163/53 94 09/03/17 21:00 98 09/03/17 20:11 99.1 F 101 15 143/60 98 09/03/17 19:00 98.7 F 98 16 151/61 98 09/03/17 16:19 100.2 F H 90 12 124/43 98 09/03/17 15:53 99.2 F 89 21 123/47 09/03/17 15:40 99.2 F 21 123/47 98 09/03/17 12:35 98 F 94 14 120/51 94 09/03/17 12:19 97.6 F 92 16 116/53 93 09/03/17 11:31 97.4 F L 96 16 126/61 96 Intake and Output 09/03/17 09/04/17 09/04/17 23:59 07:59 15:59 Intake Total 375 / 375 Output Total 800 / 800 Balance -425 / -425 Intake: IV Fluids 25 / 25 0.9 % Sodium Chloride 250 ML As 25 / 25 .ROUTE .STK-MED ONE Rx#: [id number] Oral 50 / 50 Blood Product 300 / 300 Rbcs Leuko Poor As-1 Unit 300 / 300 [id number] Output: Straight Cath 800 / 800 Other: # Voids 1 Weight 69.1 kg Patient Weight 09/04/17 23:59 Weight 69.1 kg - Labs CBC & BMP: 09/04/17 05:57 09/04/17 05:57 Labs: Abnormal lab results RBC 2.65 M/mcL (3.82-4.97) L 09/04/17 05:57 Hgb 7.8 g/dL (11.5-15.4) L 09/04/17 05:57 Hct 24.4 % (35.3-44.9) L 09/04/17 05:57 RDW 15.2 % (11.5-14.5) H 09/04/17 05:57 Plt Count 104 K/mcL (140-400) L 09/04/17 05:57 Sodium 134 mEq/L (136-145) L 09/04/17 05:57 BUN 47 mg/dL (8-23) H 09/04/17 05:57 Creatinine 2.21 mg/dL (0.60-1.20) H 09/04/17 05:57 Est GFR ( Amer) 26 (> 60) L 09/04/17 05:57 Est GFR (Non-Af Amer) 21 (> 60) L 09/04/17 05:57 Glucose 209 mg/dL (70-105) H 09/04/17 05:57 Calcium 7.5 mg/dL (8.6-10.3) L 09/04/17 05:57 - VTE Documentation of Mechanical Device: Intermittent pneumatic compression device Consult Discharge Plan - Plan Additional Instructions: JAIL DISCHARGE INSTRUCTIONS Dr. Kearney PROCEDURE PERFORMED Reduction and fixation of left hip. Incision care -Daily dressing changes to the left hip with dry gauze and either paper tape or medipore tape. -Avoid soaking wound in water (no hot tubs, bathtubs, swimming pools). -May shower after 2 weeks from surgery date. Carefully wash incision with soap and water. Gently pat it dry. Don't rub the incision, or apply creams or lotions. Sit on a shower stool when showering to keep from falling. Weight bearing status -Weightbearing as tolerated to the bilateral lower extremities. Medications -Pain medication per the discharging medical doctor -Enteric coated aspirin 325 mg by mouth twice per day for 28 days from the date of the surgery. Other -Knee high JAMMIE hose 23 hours per day -Consult physical and occupational therapy for mobilization. -Up to chair with assistance at least twice per day. -Follow up with your primary care physician to discuss testing for bone mineral density. Follow-up with Dr. Kearney at the office 2 weeks from the surgery date for a post operative evaluation. Call the office at [phone] to schedule appointment. Referrals: Vika Mustafa MD [Primary Care Provider] -
[2017-09-04] MEDS ORDERED: Ipratropium/Albuterol Neb 3 ML IH PRN (08:16)
[2017-09-04] MEDS: Aspirin Enteric Coated 81 MG Tablet PO SCH (09:07)
[2017-09-04] MEDS: (Omeprazole 10 MG) PO SCH (09:07)
[2017-09-04] MEDS: Aspirin 325 MG TABLET PO SCH ×2 (09:12→20:55)
[2017-09-04] MEDS: amLODIPine 5 MG TABLET PO SCH (09:13)
[2017-09-04] MEDS: traMADol 50 MG TABLET PO PRN ×2 (09:17→15:14)
--- NOTE | 2017-09-04 17:11 | Electrocardiograph Report ---
[address] [address] Test Date: 2017-09-01 Pat Name: Nancy Fernandes Department: 114 Room: [facility] Gender: F [employer] Supervisor: : [id number] Requested By: Tony Costa Order Number: [id number] Reading MD: Randy Villareal Measurements Intervals [place] Rate: 94 P: 76 CT: 184 QRS: -64 QRSD: 163 T: 100 QT: 395 QTc: 446 Interpretive Statements ELECTRONIC VENTRICULAR PACEMAKER ABNORMAL RHYTHM ECG Electronically Signed On 09-04-2017 17:10:06 EST by Randy Villareal
[2017-09-05 01:05] LABS: Bilirubin,Urine Negative (Negative); Blood,Urine Small (Negative); Clarity,Urine Cloudy (Clear); Color,Urine Yellow (Yellow); Glucose,Urine (UA) Normal (Normal); Ketones,Urine Negative (Negative); Leukocyte Esterase,Urine Negative (Negative); Nitrite,Urine Negative (Negative); Protein,Urine 30 mg/dL (Neg-Trace); Specific Gravity,Urine 1.012 (1.010-1.025); Urobilinogen,Urine Normal (Normal)
[2017-09-05 01:07] LABS: Hyaline Casts,Urine None Seen per lpf (None-Few); Squamous Epithelial Cell,Urine Many per lpf (None-Few); WBC,Urine 0-3 per hpf (0-3)
[2017-09-05 01:29] LABS: Bacteria,Urine Few per hpf (None-Few); RBC,Urine 0-3 per hpf (0-3); Yeast,Urine Few per hpf (None Seen)
[2017-09-05 05:33] LABS: Basophils % 0.3 %; Eosinophils # 0.1 K/mcL (0.0-0.6); Eosinophils % 1.7 %; Hematocrit 23.6 % (35.3-44.9); Hemoglobin 7.5 g/dL (11.5-15.4); Immature Granulocytes % 0.6 % (0-4); Lymphocytes % 14.3 %; Mean Corpuscular HGB Conc 31.8 g/dL (31.6-35.5); Mean Corpuscular Hemoglobin 29.6 pg (28.0-33.3); Mean Corpuscular Volume 93.3 fL (83.0-100.0); Mean Platelet Volume 11.2 fL (9.4-12.4); Monocytes # 0.7 K/mcL (0.0-1.3); Monocytes % 9.8 %; Neutrophils # 5.2 K/mcL (1.6-8.9); Nucleated Red Blood Cells 0.3 /100 WBC (0); Platelet Count 112 K/mcL (140-400); Red Blood Count 2.53 M/mcL (3.82-4.97); Red Cell Distribution Width 14.8 % (11.5-14.5); Segmented Neutrophils % 73.3 %
[2017-09-05 06:09] LABS: Potassium 4.9 mEq/L (3.5-5.1)
[2017-09-05] MEDS: Gabapentin 300 MG CAPSULE PO SCH ×4 (06:24→23:58)
--- NOTE | 2017-09-05 08:38 | Internal Med Progress Note ---
Date of Encounter: 09/05/17 Time of Encounter: 08:35 - Assessment and plan (1) Subtrochanteric fracture of femur Current Visit: Yes Status: Acute Assessment and plan: with intractable Left hip pain s/p ORIF of Left Femur on 09/02/17 - POD # 3 cont post op care as per ortho Needed 2 units PRBCs 09/03. Hgb dropped to 7.5 today. Will transfuse 1 unit today and check labs in am. Reviewed 2 D Echo - showed mild concentric LVH, Moderate LV diastolic dysfunction, Bioprosthetic AV replacement, Preserved LVEF 2 65% Aspirin 325 twice a day per Orthopedics for DVT prophylaxis. Qualifiers: Encounter type: initial encounter Fracture type: closed Fracture alignment: displaced Laterality: left Qualified Code(s): S72.22XA - Displaced subtrochanteric fracture of left femur, initial encounter for closed fracture (2) Acute diastolic heart failure Current Visit: Yes Status: Acute Assessment and plan: Patient has a history of diastolic heart failure. Gave 20 mg of IV lasix yesterday. Will give 20 more today since I will be transfusing blood. She is requiring 2 L of oxygen although she is on 2 L chronically. Continue with nebulizers. Wean down oxygen as tolerated. (3) CKD (chronic kidney disease), stage III Current Visit: Yes Status: Acute Assessment and plan: Creatinine is above baseline. It is at 2.27 today compared to 2.21. It was 2.43 09/03. We will give 20 mg of IV Lasix today again. Check labs in the morning. Avoid other nephrotoxins. Stopped IV fluids. She does have crackles. (4) Acute blood loss as cause of postoperative anemia Current Visit: Yes Status: Acute Assessment and plan: Status post 2 units PRBCs09/03. Hemoglobin is 7.5 today from 7.8 yesterday. was 8.4 on 09/03. Transfuse 1 unit today. No signs of bleeding. I suspect this is blood loss anemia from the surgery. We will continue to monitor. The patient is hemodynamically stable. Labs in the morning. (5) Dementia Current Visit: Yes Status: Acute Assessment and plan: Continue supportive care Qualifiers: Dementia type: unspecified type Dementia behavioral disturbance: without behavioral disturbance Qualified Code(s): F03.90 - Unspecified dementia without behavioral disturbance (6) Valvular disease Current Visit: Yes Status: Acute Assessment and plan: Bioprotshetic AV valve no further work needed (7) Hypertension Current Visit: Yes Status: Acute Assessment and plan: stable BP resumed home meds Coreg + Norvasc Qualifiers: Qualified Code(s): I10 - Essential (primary) hypertension (8) DVT prophylaxis Current Visit: Yes Status: Acute Assessment and plan: Aspirin 325 mg twice a day - Subjective Interval history: Patient was seen and examined. Has been no acute events. afebrile. pain is still an issue She was admitted with a left femur fracture. She is status post ORIF on 09/02. Postoperatively she required 2 units of PRBCs. She is currently on 2 L of nasal cannula oxygen. She tells me she is usually on it on and off at home. She has worked with therapy. Her status complicated by acute kidney failure on chronic kidney disease. - Constitutional Vitals: Temp Pulse Resp BP Pulse Ox 98.4 F 87 16 138/67 99 09/05/17 06:40 09/05/17 06:40 09/05/17 06:40 09/05/17 06:40 09/05/17 06:40 General appearance: Present: cooperative, A&O X 2, no acute distress, answers questions appropriately Exam: GEN: NAD CVS: RRR. S1, S2, No m/r/g RESP: Crackles at the bases. ABD: Soft, NT, ND, +BS EXT: No edema. 2+ DP, No rashes NEURO: Nonfocal Internal Medicine: Result - Labs CBC & Chem 7: 09/05/17 05:08 09/05/17 05:08 Labs: Short CBC 09/05/17 Range/Units 05:08 WBC 7.1 (4.3-11.1) K/mcL Hgb 7.5 L (11.5-15.4) g/dL Hct 23.6 L (35.3-44.9) % Plt Count 112 L (140-400) K/mcL Neutrophils # 5.2 (1.6-8.9) K/mcL BMP 09/05/17 05:08 Sodium 136 Potassium 4.9 Chloride 107 Carbon Dioxide 24 BUN 60 H Creatinine 2.27 H Glucose 151 H Calcium 8.0 L Urine 09/05/17 Range/Units 00:40 Urine Color Yellow (Yellow) Urine Clarity Cloudy A (Clear) Urine pH 6.0 (5.0-8.0) pH Units Ur Specific [place] 1.012 (1.010-1.025) Urine Protein 30 H (Neg-Trace) mg/dL Urine Glucose (UA) Normal (Normal) mg/dL - Impressions Impressions Femur X-Ray 09/01/17 18:13 IMPRESSION: Oblique, moderately displaced and comminuted fracture of the proximal left femur, with involvement of the lesser trochanter. D/ / 09/01/2017 19:28:47 Roger Marquez MD / daren Interpreting Provider: Roger Marquez MD - VTE Documentation of Mechanical Device: Intermittent pneumatic compression device Consult Discharge Plan - Plan Additional Instructions: [facility] DISCHARGE INSTRUCTIONS Dr. Kearney PROCEDURE PERFORMED Reduction and fixation of left hip. Incision care -Daily dressing changes to the left hip with dry gauze and either paper tape or medipore tape. -Avoid soaking wound in water (no hot tubs, bathtubs, swimming pools). -May shower after 2 weeks from surgery date. Carefully wash incision with soap and water. Gently pat it dry. Don't rub the incision, or apply creams or lotions. Sit on a shower stool when showering to keep from falling. Weight bearing status -Weightbearing as tolerated to the bilateral lower extremities. Medications -Pain medication per the discharging medical doctor -Enteric coated aspirin 325 mg by mouth twice per day for 28 days from the date of the surgery. Other -Knee high JAMMIE hose 23 hours per day -Consult physical and occupational therapy for mobilization. -Up to chair with assistance at least twice per day. -Follow up with your primary care physician to discuss testing for bone mineral density. Follow-up with Dr. Kearney at the office 2 weeks from the surgery date for a post operative evaluation. Call the office at [phone] to schedule appointment. Referrals: Vika Mustafa MD [Primary Care Provider] -
[2017-09-05] MEDS ORDERED: Furosemide 20 MG/2 ML VIAL IVP ONE (08:43)
[2017-09-05] MEDS: (Omeprazole 10 MG) PO SCH (09:21)
[2017-09-05] MEDS: amLODIPine 5 MG TABLET PO SCH (09:27)
[2017-09-05] MEDS: Aspirin 325 MG TABLET PO SCH ×2 (09:27→20:53)
[2017-09-05] MEDS ORDERED: 0.9 % Sodium Chloride 250 ML ONE (10:53)
[2017-09-05] MEDS: traMADol 50 MG TABLET PO PRN (11:31)
[2017-09-06 04:43] LABS: Basophils % 0.5 %; Eosinophils # 0.3 K/mcL (0.0-0.6); Eosinophils % 3.6 %; Hematocrit 27.2 % (35.3-44.9); Hemoglobin 8.5 g/dL (11.5-15.4); Immature Granulocytes % 0.6 % (0-4); Lymphocytes # 1.3 K/mcL (0.6-4.6); Lymphocytes % 16.2 %; Mean Corpuscular HGB Conc 31.3 g/dL (31.6-35.5); Mean Corpuscular Hemoglobin 28.7 pg (28.0-33.3); Mean Corpuscular Volume 91.9 fL (83.0-100.0); Mean Platelet Volume 11.2 fL (9.4-12.4); Monocytes # 0.8 K/mcL (0.0-1.3); Neutrophils # 5.4 K/mcL (1.6-8.9); Platelet Count 165 K/mcL (140-400); Red Blood Count 2.96 M/mcL (3.82-4.97); Red Cell Distribution Width 15.9 % (11.5-14.5); Segmented Neutrophils % 69.1 %
[2017-09-06 05:05] LABS: Calcium 8.4 mg/dL (8.6-10.3); Potassium 4.8 mEq/L (3.5-5.1)
[2017-09-06] MEDS: Gabapentin 300 MG CAPSULE PO SCH (05:31)
--- NOTE | 2017-09-06 07:35 | Orthopedics Progress Note ---
Date of Encounter: 09/06/17 Time of Encounter: 07:33 - Assessment and Plan (1) Subtrochanteric fracture of femur Current Visit: Yes Status: Acute Qualifiers: Encounter type: initial encounter Fracture type: closed Fracture alignment: displaced Laterality: left Qualified Code(s): S72.22XA - Displaced subtrochanteric fracture of left femur, initial encounter for closed fracture Subjective Interval history: S: Resting comfortably in bed. Expected pain to the left hip. She has been up to a chair and tolerated this well O: Afebrile and vital signs are stable; Left thigh dressings with mild serosanguineous drainage I can gently passively range the left hip with mild to moderate pain as expected. She can dorsiflex and plantar flex the ankle and toes. A: Post internal fixation of the left femur P: At this point the patient can mobilize with therapy when able Weightbearing as tolerated on the bilateral lower extremities Aspirin 325 mg by mouth twice a day Objective Vital signs: Vital Signs Temp Pulse Resp BP Pulse Ox 09/06/17 03:59 98.6 F 75 18 126/49 95 09/05/17 23:23 98.7 F 73 14 145/61 96 09/05/17 19:40 98.3 F 74 14 127/51 97 09/05/17 16:22 97.6 F 74 12 116/54 100 09/05/17 13:59 97.9 F 78 15 100/45 93 09/05/17 11:43 98.1 F 76 12 135/65 100 09/05/17 11:31 98.2 F 81 16 138/64 99 Intake and Output 09/05/17 09/05/17 09/06/17 15:59 23:59 07:59 Intake Total 900 / 900 Output Total 50 / 50 0 / 0 Balance 850 / 850 0 / 0 Intake: Oral 600 / 600 Blood Product 300 / 300 Rbcs Leuko Poor As-1 Unit 300 / 300 [id number] Output: Urine 50 / 50 0 / 0 Other: Stool Size Small Large Smear Stool Consistency soft formed formed Stool Characteristics Normal for Patient Stool Color Brown Brown Brown # Voids 1 1 1 # Urine Diapers 1 1 # Bowel Movements 1 1 - Labs CBC & BMP: 09/06/17 03:50 09/06/17 03:50 Labs: Abnormal lab results RBC 2.96 M/mcL (3.82-4.97) L 09/06/17 03:50 Hgb 8.5 g/dL (11.5-15.4) L 09/06/17 03:50 Hct 27.2 % (35.3-44.9) L 09/06/17 03:50 MCHC 31.3 g/dL (31.6-35.5) L 09/06/17 03:50 RDW 15.9 % (11.5-14.5) H 09/06/17 03:50 Nucleated RBCs/100 WBC 0.3 /100 WBC (0) H 09/05/17 05:08 Carbon Dioxide 22 mEq/L (23-29) L 09/06/17 03:50 BUN 65 mg/dL (8-23) H 09/06/17 03:50 Creatinine 1.91 mg/dL (0.60-1.20) H 09/06/17 03:50 Est GFR ( Amer) 30 (> 60) L 09/06/17 03:50 Est GFR (Non-Af Amer) 25 (> 60) L 09/06/17 03:50 BUN/Creatinine Ratio 34 (6-26) H 09/06/17 03:50 Glucose 126 mg/dL (70-105) H 09/06/17 03:50 Calculated Osmolality 304 (280-300) H 09/06/17 03:50 Calcium 8.4 mg/dL (8.6-10.3) L 09/06/17 03:50 Urine Clarity Cloudy (Clear) A 09/05/17 00:40 Urine Protein 30 mg/dL (Neg-Trace) H 09/05/17 00:40 Urine Blood Small (Negative) H 09/05/17 00:40 Ur Squamous Epith Cells Many per lpf (None-Few) H 09/05/17 00:40 Urine Yeast Few per hpf (None Seen) H 09/05/17 00:40 - VTE Documentation of Mechanical Device: Intermittent pneumatic compression device Consult Discharge Plan - Plan Additional Instructions: [facility] DISCHARGE INSTRUCTIONS Dr. Kearney PROCEDURE PERFORMED Reduction and fixation of left hip. Incision care -Daily dressing changes to the left hip with dry gauze and either paper tape or medipore tape. -Avoid soaking wound in water (no hot tubs, bathtubs, swimming pools). -May shower after 2 weeks from surgery date. Carefully wash incision with soap and water. Gently pat it dry. Don't rub the incision, or apply creams or lotions. Sit on a shower stool when showering to keep from falling. Weight bearing status -Weightbearing as tolerated to the bilateral lower extremities. Medications -Pain medication per the discharging medical doctor -Enteric coated aspirin 325 mg by mouth twice per day for 28 days from the date of the surgery. Other -Knee high JAMMIE hose 23 hours per day -Consult physical and occupational therapy for mobilization. -Up to chair with assistance at least twice per day. -Follow up with your primary care physician to discuss testing for bone mineral density. Follow-up with Dr. Kearney at the office 2 weeks from the surgery date for a post operative evaluation. Call the office at [phone] to schedule appointment. Referrals: Vika Mustafa MD [Primary Care Provider] -
[2017-09-06 07:51] VITALS: BP 130/51
--- NOTE | 2017-09-06 07:54 | Discharge Summary ---
Date of Encounter: 09/06/17 Time of Encounter: 07:50 - Discharge Diagnosis (1) Subtrochanteric fracture of femur Priority: Primary Status: Acute Qualifiers: Encounter type: initial encounter Fracture type: closed Fracture alignment: displaced Laterality: left Qualified Code(s): S72.22XA - Displaced subtrochanteric fracture of left femur, initial encounter for closed fracture (2) Acute diastolic heart failure Priority: Primary Status: Acute (3) CKD (chronic kidney disease), stage III Priority: Secondary Status: Acute (4) Acute blood loss as cause of postoperative anemia Priority: Primary Status: Acute (5) Dementia Priority: Secondary Status: Acute Qualifiers: Dementia type: unspecified type Dementia behavioral disturbance: without behavioral disturbance Qualified Code(s): F03.90 - Unspecified dementia without behavioral disturbance (6) Valvular disease Priority: Secondary Status: Acute (7) Hypertension Priority: Secondary Status: Acute Qualifiers: Hypertension type: essential hypertension Qualified Code(s): I10 - Essential (primary) hypertension - Discharge Medications Prescriptions: Aspirin 325 mg PO BID #28 tablet Tramadol HCl [Ultram] 50 mg PO Q6H PRN 5 Days #20 tablet PRN Reason: Pain Home Medications: Docusate Sodium [Stool Softener] 100 mg PO BID 09/01/17 [History] Donepezil [Aricept] 5 mg PO DAILY 09/01/17 [History] Gabapentin [Neurontin] 600 mg PO Q6HR 09/01/17 [History] Methocarbamol 09/01/17 [History] Omeprazole [PriLOSEC] 10 mg PO DAILY 09/01/17 [History] Carvedilol 12.5 mg PO BID 09/02/17 [History] Furosemide [Lasix] 40 mg PO DAILY PRN 09/02/17 [History] Gabapentin [Neurontin] 600 mg PO Q6H PRN 09/02/17 [History] Memantine HCl 10 mg PO DAILY 09/02/17 [History] amLODIPine [Norvasc] 5 mg PO DAILY 09/02/17 [History] Aspirin 325 mg PO BID #28 tablet 09/06/17 [Rx] Tramadol HCl [Ultram] 50 mg PO Q6H PRN 5 Days #20 tablet 09/06/17 [Rx] Allergies/Adverse Reactions: 3 Allergy/AdvReac Type Severity Reaction Status Date / Time No Known Allergies Allergy Verified 09/02/17 10:34 Date of admission: 09/01/17 15:44 Primary care physician: Vika Mustafa MD Consults: 09/02/17 17:16 Consult to Occupational Therapy [CONS] Routine Comment: Evaluate, develop and implement POC Reason for Consult: post hip surgery Consult to Physical Therapy [CONS] Routine Comment: Evaluate, develop and implement POC Reason for Consult: post hip surgery Consult to [employer] [CONS] Routine Reason for SW Consult: post -op hip fracture - Patient Status Disposition: Transfer SNF Condition: Fair Overall status at discharge: patient is progressing back to baseline - Discharge Instructions Follow Up With: Vika Mustafa MD [Primary Care Provider] - Felipe Kearney MD [Partnered Physician] - (2 weeks) Additional Instructions: [facility] DISCHARGE INSTRUCTIONS Dr. Kearney PROCEDURE PERFORMED Reduction and fixation of left hip. Incision care -Daily dressing changes to the left hip with dry gauze and either paper tape or medipore tape. -Avoid soaking wound in water (no hot tubs, bathtubs, swimming pools). -May shower after 2 weeks from surgery date. Carefully wash incision with soap and water. Gently pat it dry. Don't rub the incision, or apply creams or lotions. Sit on a shower stool when showering to keep from falling. Weight bearing status -Weightbearing as tolerated to the bilateral lower extremities. Medications -Pain medication per the discharging medical doctor -Enteric coated aspirin 325 mg by mouth twice per day for 28 days from the date of the surgery. Other -Knee high JAMMIE hose 23 hours per day -Consult physical and occupational therapy for mobilization. -Up to chair with assistance at least twice per day. -Follow up with your primary care physician to discuss testing for bone mineral density. Follow-up with Dr. Kearney at the office 2 weeks from the surgery date for a post operative evaluation. Call the office at [phone] to schedule appointment. - Diet and Activity Activity: as per physical therapy Diet: low salt diet Hospital course: Ms. Fernandes is a 86 year old female with a past medical history of dementia, GERD , valve replacement, pacer presented after a fall while eating at a restaurant. Patient has dementia . she was complaining of significant pain in the left hip since the fall, and has a reduced range of motion. Initial workup in the ED showed mildly comminuted displaced overriding angulated subtrochanteric fracture of the left femur with involvement of the left lesser trochanter. She was admitted to the hospitalist service. She underwent ORIF of the left femur. Postoperatively she was noted to have blood loss anemia. She was transfused 1 unit of PRBCs. Her hemoglobin on day of discharge was 8.5. The day prior to discharge was 7.5. On admission was 8.6. The patient was stable for discharge to rehabilitation on 09/06/2017. She will follow-up with orthopedics. She is being discharged on aspirin 325 mg twice a day for DVT prophylaxis. - Time Spent with Patient Total time spent providing and/or coordinating discharge services: Greater than 30 minutes - Constitutional Vitals: Temp Pulse Resp BP Pulse Ox 98.6 F 75 18 126/49 95 09/06/17 03:59 09/06/17 03:59 09/06/17 03:59 09/06/17 03:59 09/06/17 03:59 General appearance: Present: cooperative, A&O X 2, no acute distress, answers questions appropriately Exam: GEN: NAD CVS: RRR. S1, S2, No m/r/g RESP: Crackles at the bases. ABD: Soft, NT, ND, +BS EXT: No edema. 2+ DP, No rashes NEURO: Nonfocal - VTE Documentation of Mechanical Device: Intermittent pneumatic compression device
[2017-09-06] MEDS: Aspirin 325 MG TABLET PO SCH (08:57)
[2017-09-06] MEDS: (Omeprazole 10 MG) PO SCH (08:58)
[2017-09-06] MEDS: amLODIPine 5 MG TABLET PO SCH (08:58)
--- NOTE | 2017-09-06 12:50 | Physician Discharge Referral ---
ExtendedCare Referral Info Institutional Level of Care: Skilled - Diagnosis (1) Subtrochanteric fracture of femur Priority: Primary Status: Acute (2) Acute diastolic heart failure Priority: Primary Status: Acute (3) CKD (chronic kidney disease), stage III Priority: Secondary Status: Acute (4) Acute blood loss as cause of postoperative anemia Priority: Primary Status: Acute (5) Dementia Priority: Secondary Status: Acute (6) Valvular disease Priority: Secondary Status: Acute (7) Hypertension Priority: Secondary Status: Acute - Transfer Medications Prescriptions: Aspirin 325 mg PO BID #28 tablet Tramadol HCl [Ultram] 50 mg PO Q6H PRN 5 Days #20 tablet PRN Reason: Pain Home Medications: Docusate Sodium [Stool Softener] 100 mg PO BID 09/01/17 [History] Donepezil [Aricept] 5 mg PO DAILY 09/01/17 [History] Gabapentin [Neurontin] 600 mg PO Q6HR 09/01/17 [History] Methocarbamol 09/01/17 [History] Omeprazole [PriLOSEC] 10 mg PO DAILY 09/01/17 [History] Carvedilol 12.5 mg PO BID 09/02/17 [History] Furosemide [Lasix] 40 mg PO DAILY PRN 09/02/17 [History] Gabapentin [Neurontin] 600 mg PO Q6H PRN 09/02/17 [History] Memantine HCl 10 mg PO DAILY 09/02/17 [History] amLODIPine [Norvasc] 5 mg PO DAILY 09/02/17 [History] Aspirin 325 mg PO BID #28 tablet 09/06/17 [Rx] Tramadol HCl [Ultram] 50 mg PO Q6H PRN 5 Days #20 tablet 09/06/17 [Rx] Allergies/Adverse Reactions: 3 Allergy/AdvReac Type Severity Reaction Status Date / Time No Known Allergies Allergy Verified 09/02/17 10:34 - Respiratory Orders Smoking Cessation: Smoking cessation has been advised. For more information, call the [employer] Tobacco Quit Line at 0-785-BPWF-NOW. - Rehabiliation Orders Rehab Orders: Evaluation for Physical Therapy - Diet Orders Regular CERTIFICATION: I certify that the transfer of the above named patient to an Extended Care Facility is necessary for the continuing treatment of the diagnosis listed. The above information is true and accurate reflection of patient's current condition. Confidential - Redisclosure prohibited without a patient's written consent.
[2017-09-06] MEDS: *HR* OxyCODONE Immed Rel 5 MG TABLET PO PRN (13:14)
== END 2017-09-06 13:30 | DRG 480 ==
LOC: 3NENU 15:44
PROVIDERS: ADMIT Internal Medicine; ATTEND Internal Medicine